=== PATIENT | female | born 1975 | race Caucasian/White ===

== ENCOUNTER 2020-06-17 23:22 | Observation (INO) ==
[2020-06-17] MEDS ORDERED: Isovue-370 500 ML BOTTLE IVP ONE (23:37)
[2020-06-18 00:21] LABS: Basophils # 0.1 K/mcL (0.0-0.2); Basophils % 0.3 %; Hematocrit 44.4 % (35.3-44.9); Hemoglobin 14.2 g/dL (11.5-15.4); Immature Granulocytes % 0.6 % (0-4); Lymphocytes # 1.2 K/mcL (0.6-4.6); Lymphocytes % 7.5 %; Mean Corpuscular Hemoglobin 27.6 pg (28.0-33.3); Mean Corpuscular Volume 86.4 fL (83.0-100.0); Mean Platelet Volume 9.6 fL (9.4-12.4); Monocytes # 0.6 K/mcL (0.0-1.3); Monocytes % 3.6 %; Neutrophils # 13.8 K/mcL (1.6-8.9); Platelet Count 369 K/mcL (140-400); Red Blood Count 5.14 M/mcL (3.82-4.97); Red Cell Distribution Width 13.7 % (11.5-14.5); White Blood Count 15.7 K/mcL (4.3-11.1)
[2020-06-18 00:30] LABS: INR 1.1; Prothrombin Time 13.2 Seconds (9.4-12.1)
[2020-06-18 00:32] LABS: Activated Partial Thrombo Time 29.6 Seconds (26.0-36.0)
[2020-06-18 00:43] LABS: Alanine Aminotransferase 134 Units/L (7-52); Albumin 3.7 g/dL (3.5-5.7); Alkaline Phosphatase 156 Units/L (34-104); Aspartate Amino Transferase 81 Units/L (13-39); BUN/Creatinine Ratio 16 (6-26); Bilirubin,Direct 0.1 mg/dL (0.0-0.2); Bilirubin,Indirect 0.4 mg/dL (0.0-1.0); Bilirubin,Total 0.5 mg/dL (0.3-1.0); Blood Urea Nitrogen 12 mg/dL (6-20); C-Reactive Protein 49 mg/L (Less than 10); Calcium 8.6 mg/dL (8.6-10.3); Carbon Dioxide 25 mEq/L (23-29); Chloride 96 mEq/L (98-107); Globulin 3.8 g/dL (2.4-3.5); Glucose 177 mg/dL (70-105); Lactate Dehydrogenase 166 Units/L (140-271); Osmolality,Calculated 280 (280-300); Phosphorous 2.4 mg/dL (2.7-4.5); Potassium 3.8 mEq/L (3.5-5.1); Sodium 133 mEq/L (136-145); Total Protein 7.5 g/dL (6.4-8.9); eGFR For African Americans > 60 (> 60); eGFR For Non-African Americans > 60 (> 60)
[2020-06-18] MEDS ORDERED: 0.9 % Sodium Chloride 1,000 ML IVC ONE (00:43)
[2020-06-18 00:44] LABS: Troponin I < 0.03 ng/mL (< 0.04)
[2020-06-18 01:02] LABS: Ferritin 253 ng/mL (10-120)
[2020-06-18] MEDS ORDERED: Naloxone 0.4 MG/ML INJ IVP PRN (04:38)
[2020-06-18] MEDS ORDERED: Ondansetron 4 MG/2 ML VIAL IVP PRN (04:38)
[2020-06-18] MEDS ORDERED: Acetaminophen 325 MG TABLET PO PRN (04:38)
[2020-06-18 05:12] LABS: Basophils % 0.1 %; Hematocrit 42.3 % (35.3-44.9); INR 1.2; Immature Granulocytes % 0.4 % (0-4); Lymphocytes # 0.8 K/mcL (0.6-4.6); Lymphocytes % 6.9 %; Mean Corpuscular HGB Conc 33.1 g/dL (31.6-35.5); Mean Corpuscular Volume 87.6 fL (83.0-100.0); Mean Platelet Volume 9.6 fL (9.4-12.4); Monocytes # 0.2 K/mcL (0.0-1.3); Monocytes % 1.3 %; Neutrophils # 10.5 K/mcL (1.6-8.9); Platelet Count 368 K/mcL (140-400); Prothrombin Time 13.6 Seconds (9.4-12.1); Red Blood Count 4.83 M/mcL (3.82-4.97); Red Cell Distribution Width 13.7 % (11.5-14.5); Segmented Neutrophils % 91.3 %; White Blood Count 11.5 K/mcL (4.3-11.1)
[2020-06-18] MEDS ORDERED: [UNRECOGNIZED DRUG - OTHER] PO PRN (05:48)
[2020-06-18] MEDS: *HR* Enoxaparin 40 MG/0.4 ML SYRINGE SQ SCH (06:28)
[2020-06-18 06:29] LABS: Carbon Dioxide 21 mEq/L (23-29); Ferritin 244 ng/mL (10-120)
[2020-06-18 06:30] LABS: Alanine Aminotransferase 119 Units/L (7-52); Albumin 3.6 g/dL (3.5-5.7); Alkaline Phosphatase 147 Units/L (34-104); Aspartate Amino Transferase 67 Units/L (13-39); BUN/Creatinine Ratio 18 (6-26); Bilirubin,Total 0.5 mg/dL (0.3-1.0); Blood Urea Nitrogen 12 mg/dL (6-20); C-Reactive Protein 50 mg/L (Less than 10); Calcium 8.8 mg/dL (8.6-10.3); Chloride 99 mEq/L (98-107); Globulin 3.6 g/dL (2.4-3.5); Glucose 233 mg/dL (70-105); Lactate Dehydrogenase 174 Units/L (140-271); Magnesium 2.3 mg/dL (1.6-2.6); Osmolality,Calculated 283 (280-300); Phosphorous 2.7 mg/dL (2.7-4.5); Potassium 4.3 mEq/L (3.5-5.1); Sodium 133 mEq/L (136-145); Total Protein 7.2 g/dL (6.4-8.9); eGFR For African Americans > 60 (> 60); eGFR For Non-African Americans > 60 (> 60)
[2020-06-18] MEDS: hydroCHLOROthiazide 25 MG TABLET PO SCH (07:52)
[2020-06-18] MEDS: Dexamethasone Sodium Phos/PF 10 MG/ML VIAL IVP SCH (07:52)
[2020-06-18] MEDS: lisinopriL 20 MG TABLET PO SCH (07:53)
[2020-06-18] MEDS: Budesonide/Formoterol 160/4.5 1 PUFF INH IH SCH (10:55)
[2020-06-19] MEDS: *HR* Enoxaparin 40 MG/0.4 ML SYRINGE SQ SCH (05:52)
[2020-06-19] MEDS: Budesonide/Formoterol 160/4.5 1 PUFF INH IH SCH (07:59)
[2020-06-19] MEDS: lisinopriL 20 MG TABLET PO SCH (08:18)
[2020-06-19] MEDS: Dexamethasone Sodium Phos/PF 10 MG/ML VIAL IVP SCH (08:19)
[2020-06-19] MEDS: hydroCHLOROthiazide 25 MG TABLET PO SCH (08:19)
[2020-06-19 08:36] VITALS: BP 135/77
[2020-06-19] MEDS: Ipratropium 1 PUFF INHALER IH SCH ×3 (11:47→19:47)
== END 2020-06-19 20:35 | disposition home or self-care (01) ==
LOC: EMEROOARM 23:22 → 2NENU 23:22 → SUATTDRO 06-18 03:12 → 2NENU 06-18 03:35
PROVIDERS: ADMIT Internal Medicine; ATTEND Pharmacist